=== PATIENT | female | born 1985 | race Caucasian/White ===

== ENCOUNTER 2020-12-12 22:50 | Inpatient (IN) | payer OTHER ==
[2020-12-12 23:38] LABS: HCT 33.2 % (37.0-47.0); HGB 10.8 g/dl (12.5-16.0); MCH 27.6 pg (25.0-31.0); MCHC 32.5 g/dL (32.0-36.0); MCV 84.7 fL (78.0-100.0); MPV 10.9 fL (6.0-9.5); RBC 3.92 M/uL (4.20-5.40); RDW 14.6 % (11.5-14.0); WBC 19.1 K/uL (4.0-10.5)
[2020-12-13] MEDS ORDERED: PRENATAL FORMU1 EACH PO (01:05)
[2020-12-13] MEDS ORDERED: COLACE100 MG PO (01:05)
[2020-12-13] MEDS ORDERED: FEOSOL325 MG PO (01:05)
[2020-12-13] MEDS ORDERED: MOTRIN600 MG PO (01:05)
[2020-12-13 03:11] LABS: AMPHETAMINES NEGATIVE (NEGATIVE); BARBITURATES NEGATIVE (NEGATIVE); BILIRUBIN NEGATIVE (NEGATIVE); BLOOD 3+ Ery/uL (NEGATIVE); CLARITY HAZY (CLEAR); COLOR RED (YELLOW); ECSTASY (MDMA) NEGATIVE (NEGATIVE); GLUCOSE (U) TRACE mg/dL (NORMAL); LEUKOCYTES 2+ Leu/uL (NEGATIVE); MARIJUANA (THC) NEGATIVE (NEGATIVE); METHADONE NEGATIVE (NEGATIVE); NITRITE NEGATIVE (NEGATIVE); OPIATES NEGATIVE (NEGATIVE); OXYCODONE NEGATIVE (NEGATIVE); PROTEIN 2+ mg/dL (NEGATIVE); SPECIFIC GRAVITY <=1.005 (1.001-1.030); UROBILINOGEN 0.2 mg/dL (0.2-1.0); pH 6.5 (5.0-9.0)
[2020-12-13 03:17] LABS: SQUAMOUS EPITHELIAL CELLS RARE; URINARY RBC TNTC
[2020-12-13 13:07] LABS: HCT 28.9 % (37.0-47.0); HGB 9.6 g/dl (12.5-16.0); MCH 27.6 pg (25.0-31.0); MCHC 33.2 g/dL (32.0-36.0); MPV 10.1 fL (6.0-9.5); RBC 3.48 M/uL (4.20-5.40); RDW 14.2 % (11.5-14.0); WBC 19.9 K/uL (4.0-10.5)
== END 2020-12-14 12:47 | disposition home or self-care (01) | DRG 806 ==
LOC: FOD 22:50 → FOB 22:56 → FOD 12-13 00:01 → FOB 12-13 00:02
PROVIDERS: ADMIT Obstetrics & Gynecology
PROC: 4A1HX4Z Monitoring of Products of Conception, Cardiac Electrical Activity, External Approach (ICD-10-PCS; 2020-12-13)
PROC: 3E0234Z Introduction of Serum, Toxoid and Vaccine into Muscle, Percutaneous Approach (ICD-10-PCS; 2020-12-13)
PROC: 10E0XZZ Delivery of Products of Conception, External Approach (ICD-10-PCS; principal; 2020-12-14)
PROC: 0HQ9XZZ Repair Perineum Skin, External Approach (ICD-10-PCS; 2020-12-14)
DX: O60.14X0 Preterm labor third trimester with preterm delivery third trimester, not applicable or unspecified (principal); D62 Acute posthemorrhagic anemia; Z37.0 Single live birth; O99.334 Smoking (tobacco) complicating childbirth; F17.210 Nicotine dependence, cigarettes, uncomplicated; Z3A.32 32 weeks gestation of pregnancy; O34.211 Maternal care for low transverse scar from previous cesarean delivery; O26.893 Other specified pregnancy related conditions, third trimester; O70.0 First degree perineal laceration during delivery; O69.1XX0 Labor and delivery complicated by cord around neck, with compression, not applicable or unspecified; Z67.11 Type A blood, Rh negative; Z20.822 Contact with and (suspected) exposure to COVID-19; D50.9 Iron deficiency anemia, unspecified; O99.03 Anemia complicating the puerperium; Z79.899 Other long term (current) drug therapy
CPT/HCPCS: 36415; 80305; 81001; 85461; 86850; 86900; 86901; J2001; J2540; J2790; J7120; U0002